=== PATIENT | male | born 1960 | race Caucasian/White ===

== ENCOUNTER 2019-04-30 14:23 | Emergency (ER) | payer MEDICARE ==
[2019-04-30 14:31] VITALS: PULSE 99; RESP 18
--- NOTE | 2019-04-30 14:34 | ED ---
General Adult HPI - General Stated complaint: poss kidney stones Time Seen by Provider: 04/30/19 14:25 Source: patient, EMS, RN notes reviewed Mode of arrival: EMS Limitations: no limitations - History of Present Illness Initial comments: This a 59-year-old male presents emergency department as a transfer from [facility] for right flank pain. Patient has sudden onset of pain this morning a right flank pain. CT was obtained along with lab work and shows evidence of 8 mm distal right ureter stone. Patient has received multiple rounds of pain medication including a total of 8 of morphine and wanted Dilaudid patient's pain has mildly improved at this time. He denies any nausea and diarrhea constipation. Patient states she has no history of kidney stones prior to this. Patient reports no fevers or chills no evidence of urinary tract infection. - Related Data Previous Rx's Medication Instructions Recorded HYDROcodone/APAP 7.5-325MG [[place] 1 tab PO Q6HR PRN 3 Days #12 tab 04/30/19 7.5-325] Tamsulosin [Flomax] 0.4 mg PO DAILY #14 cap 04/30/19 Allergies Allergy/AdvReac Type Severity Reaction Status Date / Time No Known Allergies Allergy Verified 04/30/19 14:28 Review of Systems ROS Statement: Those systems with pertinent positive or pertinent negative responses have been documented in the HPI. ROS Other: All systems not noted in ROS Statement are negative. Past Medical History Past Medical History: Hypertension Additional Past Medical History / Comment(s): DDD in neck History of Any Multi-Drug Resistant Organisms: None Reported Past Surgical History: No Surgical Hx Reported Past Psychological History: No Psychological Hx Reported Smoking Status: Never smoker Past Alcohol Use History: None Reported Past Drug Use History: None Reported General Exam Limitations: no limitations General appearance: alert, in no apparent distress Head exam: Present: atraumatic, normocephalic, normal inspection Eye exam: Present: normal appearance, PERRL, EOMI. Absent: scleral icterus, conjunctival injection, periorbital swelling Neck exam: Present: normal inspection. Absent: tenderness, meningismus, lymphadenopathy Respiratory exam: Present: normal lung sounds bilaterally. Absent: respiratory distress, wheezes, rales, rhonchi, stridor Cardiovascular Exam: Present: regular rate, normal rhythm, normal heart sounds. Absent: systolic murmur, diastolic murmur, rubs, gallop, clicks GI/Abdominal exam: Present: soft, tenderness (Minimal right-sided), normal bowel sounds. Absent: distended, guarding, rebound, rigid Back exam: Present: CVA tenderness (R). Absent: CVA tenderness (L) Neurological exam: Present: alert, oriented X3, CN II-XII intact Skin exam: Present: warm, dry, intact, normal color. Absent: rash Course Vital Signs 04/30/19 14:25 Temperature 97.9 F Pulse Rate 99 Respiratory 18 Rate Blood Pressure 140/102 O2 Sat by Pulse 95 Oximetry Medical Decision Making - Medical Decision Making 59-year-old male presented for right flank pain as a transfer from Hospital. Patient was evaluated by urology Dr. Walls. Patient given options regarding treatment this time. Patient prefers to go home with pain medication, Flomax and will follow-up in office in one week. Return parameters were discussed. Disposition Clinical Impression: Right ureteral calculus, Right flank pain Disposition: HOME SELF-CARE Condition: Stable Instructions (If sedation given, give patient instructions): Kidney Stones (ED) Additional Instructions: Please return to the Emergency Department if symptoms worsen or any other concerns. Prescriptions: Tamsulosin [Flomax] 0.4 mg PO DAILY #14 cap HYDROcodone/APAP 7.5-325MG [[place] 7.5-325] 1 tab PO Q6HR PRN 3 Days #12 tab PRN Reason: Pain Is patient prescribed a controlled substance at d/c from ED?: Yes When asked, does pt state using other controlled substances?: No If prescribed controlled substance>3 days was MAPS reviewed?: Prescribed <3 Days If opioid is for acute pain is fill amount 7 days or less?: Yes If Rx opioid, was Start Talking consent form obtained?: Yes Referrals: Kahlil Rader DO [Primary Care Provider] - 1-2 days Shane Walls MD [STAFF PHYSICIAN] - 1-2 days Time of Disposition: 15:04
--- NOTE | 2019-04-30 15:08 | P.GSCN ---
History of Present Illness Consult date: 04/30/19 History of present illness: The patient is a 59-year-old gentleman who was sent down from [facility] emergency room because of intractable pain due to an 8 mm distal right ureteral stone. The patient states that earlier this morning he was awakened with severe right-sided lower quadrant pain and right flank pain. He went to the [facility] emergency room. They eventually get a CAT scan which identified the above- mentioned stone. The pain was not able to be controlled thus he is transferred here to [facility]. In the emergency room the physicians were able to control his pain. They contacted me for further evaluation and or treatment. The patient also has a 6-7 mm right lower pole calyceal stone. This is his first stone. The patient's brother has stones. He has no fever or chills. There is been no gross hematuria. He is comfortable at present. Review of Systems All systems: negative - Constitutional Denies fever, Denies weight loss - EENT Eyes: denies blurred vision Ears, nose, mouth and throat: Denies dysphagia - Cardiovascular Denies chest pain, Denies shortness of breath - Respiratory Denies cough, Denies 7 - Gastrointestinal Reports as per HPI - Genitourinary Denies dysuria, Denies hematuria - Integumentary Denies rash, Denies unusual bruising - Neurological Denies headaches, Denies syncope - Hematologic/Lymphatic Denies easy bleeding, Denies easy bruising Past Medical History Past Medical History: Hypertension Additional Past Medical History / Comment(s): DDD in neck History of Any Multi-Drug Resistant Organisms: None Reported Past Surgical History: No Surgical Hx Reported Past Psychological History: No Psychological Hx Reported Smoking Status: Never smoker Past Alcohol Use History: None Reported Past Drug Use History: None Reported Medications and Allergies Home Medications Medication Instructions Recorded Confirmed Type HYDROcodone/APAP 7.5-325MG [[place] 1 tab PO Q6HR PRN 3 Days #12 tab 04/30/19 Rx 7.5-325] Tamsulosin [Flomax] 0.4 mg PO DAILY #14 cap 04/30/19 Rx Allergies Allergy/AdvReac Type Severity Reaction Status Date / Time No Known Allergies Allergy Verified 04/30/19 14:28 Surgical - Exam Vital Signs Temp Pulse Resp BP Pulse Ox 97.9 F 99 18 140/102 95 04/30/19 14:25 04/30/19 14:25 04/30/19 14:25 04/30/19 14:25 04/30/19 14:25 - General well developed, well nourished, no distress - Eyes PERRL - ENT no hearing loss - Neck trachea midline - Respiratory normal expansion, normal respiratory effort - Cardiovascular Rhythm: regular - Abdomen Abdomen: soft, non tender - Genitourinary normal penis with no external lesions, testicles present - Integumentary no rash, no growths - Neurologic normal coordination, normal sensation - Musculoskeletal normal posture - Psychiatric oriented to time, oriented to person, oriented to place, speech is normal, memory intact Results - Imaging CT scan - abdomen: report reviewed, image reviewed CT scan - pelvis: report reviewed, image reviewed Assessment and Plan Assessment: Impression: Right ureteral calculus with obstruction and discomfort. Recommendations: The patient's pain is controlled. We discussed treatment options including spontaneous passage, ureteroscopic manipulation or shockwave lithotripsy. The patient would like to pass this spontaneously if possible. He'll be given a prescription of some pain medication and Flomax and be seen in the office in one week with the understanding that if the pain returns he can contact me sooner and we will consider treating this surgically. My recommendation for this location and the size of stone be a ureteroscopic manipulation due to the high success rate. The patient will call tomorrow for a follow-up appointment and has been instructed to call when necessary is indicated.
[2019-04-30 15:41] VITALS: BP 147/96; TEMP 97.7
== END 2019-04-30 15:39 | disposition home or self-care (01) ==
LOC: EC 14:23
DX: N20.1 Calculus of ureter (principal); Z79.899 Other long term (current) drug therapy
CPT/HCPCS: 99284